=== PATIENT | female | born 1995 | race African-American/Black ===

== ENCOUNTER 2021-01-09 16:39 | Emergency (ER) | payer OTHER, SELFPAY ==
--- NOTE | ~2021-01-09 | XR_ITS ---
EXAMINATION: XR HAND, RIGHT CLINICAL INFORMATION: Laceration COMPARISON: None TECHNIQUE: Four views of the right hand. FINDINGS: Several small bony densities along the fifth metacarpal. Consistent with foreign bodies. There is soft tissue disruption There is no evidence for bony fracture. Soft tissue air is seen along the dorsal aspect of the wrist and proximal hand. XR/XR hand RT min 3V IMPRESSION: Numerous radiopaque foreign bodies within the soft tissue adjacent to the distal aspect of the fifth metacarpal. Some dissecting air and soft tissue is also noted. No convincing evidence for bony fracture
[2021-01-09 16:54] VITALS: BP 120/79; PULSE 92; RESP 16; TEMP 37.1; O2SAT 100; BMI 24.1
== END 2021-01-09 18:31 | disposition left against medical advice (07) ==
PROVIDERS: Emergency Provider Emergency Medicine
DX: S61.411A Laceration without foreign body of right hand, initial encounter (principal); W25.XXXA Contact with sharp glass, initial encounter; Y93.9 Activity, unspecified; Y92.9 Unspecified place or not applicable; Y99.9 Unspecified external cause status
CPT/HCPCS: 73130; 99282; 99283